=== PATIENT | female | born 1930 | race Caucasian/White ===

== ENCOUNTER 2018-04-18 15:18 | Emergency (ER) | payer MEDICAID, OTHER ==
[2018-04-18 15:31] VITALS: BMI 27.9
[2018-04-18 15:37] VITALS: TEMP 98.5
[2018-04-18] MEDS ORDERED: Sodium Chloride 0.9% 500 ML IV ONE (16:12)
[2018-04-18] MEDS ORDERED: Sodium Chloride 0.9% 1,000 ML ONE (16:37)
[2018-04-18 16:53] LABS: BASO # 0.1 K/uL (0.0-0.2); BASO % 0.7 % (0.0-2.0); EOS # 0.1 K/uL (0.0-0.7); EOS % 0.9 % (0.0-4.0); HEMOGLOBIN 13.4 g/dL (11.0-16.0); LYMPH # 0.9 K/uL (1.0-4.3); LYMPH % 10.3 % (20.0-40.0); MEAN CELL VOLUME 89.7 fL (81.0-99.0); MEAN CORPUSCULAR HEMOGLOBIN 30.4 pg (27.0-31.0); MEAN CORPUSCULAR HGB CONC 33.9 g/dL (33.0-37.0); MEAN PLATELET VOLUME 9.3 fL (7.2-11.7); MONO # 0.3 K/uL (0.0-0.8); MONO % 3.4 % (0.0-10.0); NEUT # 7.1 K/uL (1.8-7.0); NEUT % 84.7 % (50.0-75.0); NRBC % 0.1 % (0.0-2.0); RBC 4.4 Mil/uL (3.80-5.20); RED CELL DISTRIBUTION WIDTH 14.5 % (11.5-14.5); WHITE BLOOD COUNT 8.3 K/uL (4.8-10.8)
[2018-04-18 17:07] LABS: ALB/GLOB RATIO 1.4 (1.0-2.1); ALBUMIN 4.3 g/dL (3.5-5.0); CALCIUM 9.3 mg/dl (8.6-10.4); GFR AFRICAN-AMERICAN > 60; GFR NON-AFRICAN AMERICAN > 60; LIPASE 84 U/L (23-300)
[2018-04-18 17:17] LABS: ALT/SGPT 23 U/L (9-52); AST/SGOT 29 U/L (14-36); BLOOD UREA NITROGEN 13 mg/dL (7-17)
--- NOTE | 2018-04-18 17:47 | C.PDOC ---
History Of Present Illness 88 y/o female presents to ED with c/o multiple episodes of nausea and vomiting that developed earlier today after taking her usual blood pressure and DM medications. Patient denies any changes in her medications/doses. She also admits to mild dysuria. Patient denies abdominal pain, fever, chest pain, sob, sick contacts, hematuria, or any other physical complaints at this time. Time Seen by Provider: 04/18/18 15:44 Chief Complaint (Nursing): GI Problem History Per: Patient History/Exam Limitations: no limitations Onset/Duration Of Symptoms: Hrs Current Symptoms Are (Timing): Still Present Severity: Mild Quality Of Discomfort: "Pain" Associated Symptoms: Nausea, Vomiting, Urinary Symptoms Past Medical History Reviewed: Historical Data, Nursing Documentation, Vital Signs Vital Signs: Last Vital Signs Temp 98.5 F 04/18/18 15:31 Pulse 83 04/18/18 18:59 Resp 18 04/18/18 18:59 BP 145/78 04/18/18 18:59 Pulse Ox 97 04/18/18 18:59 - Medical History PMH: Arthritis, Asthma, Bronchitis, HTN, Hypercholesterolemia, Pneumonia Surgical History: No Surg Hx Family History: States: No Known Family Hx - Social History Hx Tobacco Use: No Hx Alcohol Use: No Hx Substance Use: No - Immunization History Hx Tetanus Toxoid Vaccination: No Hx Influenza Vaccination: Yes Hx Pneumococcal Vaccination: No Review Of Systems Constitutional: Negative for: Fever, Chills Cardiovascular: Negative for: Chest Pain, Palpitations Respiratory: Negative for: Shortness of Breath Gastrointestinal: Positive for: Nausea, Vomiting. Negative for: Abdominal Pain , Diarrhea Genitourinary: Positive for: Dysuria. Negative for: Hematuria, Vaginal Bleeding Skin: Negative for: Rash Neurological: Negative for: Headache, Dizziness Physical Exam - Physical Exam Appears: Well, Non-toxic, No Acute Distress Skin: Warm, Dry, No Rash Head: Normacephalic Eye(s): bilateral: Normal Inspection Oral Mucosa: Moist Neck: Supple Cardiovascular: Rhythm Regular Respiratory: Normal Breath Sounds, No Rales, No Rhonchi, No Wheezing Gastrointestinal/Abdominal: Normal Exam, Bowel Sounds, Soft, No Tenderness Neurological/Psych: Oriented x3 ED Course And Treatment - Laboratory Results Result Diagrams: 04/18/18 16:49 04/18/18 16:49 O2 Sat by Pulse Oximetry: 98 (RA) Pulse Ox Interpretation: Normal Progress Note: Blood work, UA ordered and reviewed. Patient given IV NS bolus. UA shows mild UTI - PO Ciprofloxacin given. Reevaluation Time: 18:59 Reassessment Condition: Improved (Patient reassessed, is resting comfortably and states she feels better. Patient is comfortable being discharged home at this time. Rxs for Ciprofloxacin and Zofran, and was instructed to follow up with PMD in 1-2 days. She understands she should return to ED if symptoms worsen.) Disposition Counseled Patient/Family Regarding: Studies Performed, Diagnosis, Need For Followup, Rx Given - Disposition Referrals: Shirin Bowers MD [Staff Provider] - Disposition: HOME/ ROUTINE Disposition Time: 18:50 Condition: STABLE Additional Instructions: FOLLOW UP WITH YOUR DOCTOR IN 1-2 DAYS USE MEDICATIONS NEEDED DRINK PLENTY OF FLUIDS RETURN TO EMERGENCY ROOM IF SYMPTOMS WORSEN SEGUIMIENTO CON GÓMEZ MDICO EN 1-2 PECK USE MEDICAMENTOS SEGN SEA NECESARIO BEBER MUCHO LQUIDO REGRESE AL GABRIELE DE EMERGENCIA SI LOS SNTOMAS EMPEORAN Prescriptions: Ciprofloxacin [Cipro] 1 tab PO BID #14 tab Ondansetron [Zofran Odt] 4 mg PO Q8 PRN #10 odt PRN Reason: Nausea/Vomiting Instructions: Urinary Tract Infection, Adult (DC) Forms: [facility] (Citizen Of [place]) Print Language: CROATIAN - Clinical Impression Clinical Impression: UTI (urinary tract infection), Nausea and vomiting - Scribe Statement The provider has reviewed the documentation as recorded by the Ramirez Thompson All medical record entries made by the Alessandraibkirill were at my direction and personally dictated by me. I have reviewed the chart and agree that the record accurately reflects my personal performance of the history, physical exam, medical decision making, and the department course for this patient. I have also personally directed, reviewed, and agree with the discharge instructions and disposition.
[2018-04-18 18:24] LABS: SQUAMOUS EPITHIAL 1 /hpf (0-5); URINE BACTERIA RARE (<OCC); URINE BILIRUBIN NEGATIVE (NEGATIVE); URINE BLOOD NEGATIVE (NEGATIVE); URINE CLARITY Clear (Clear); URINE COLOR Yellow (YELLOW); URINE GLUCOSE (UA) NORMAL (Normal); URINE LEUKOCYTE ESTERASE TRACE Leu/uL (Negative); URINE PROTEIN NEGATIVE (NEGATIVE); URINE UROBILINOGEN NORMAL mg/dL (0.2-1.0)
[2018-04-18 19:00] VITALS: BP 145/78; PULSE 83; RESP 18
--- NOTE | 2018-04-19 18:22 | CARD ---
APPROVED REPORT EKG Measurement Heart [id number] ID [id number] <Conclusion> Normal sinus rhythm Normal ECG
[2018-04-20 18:21] VITALS: O2SAT 98
== END 2018-04-18 19:00 | disposition home or self-care (01) ==
LOC: C.ER 15:18
DX: N39.0 Urinary tract infection, site not specified (principal); R11.2 Nausea with vomiting, unspecified
CPT/HCPCS: 80053; 81001; 82948; 83690; 85025; 87086; 93005; 96360; 99284; J7040

== ENCOUNTER 2018-08-22 09:38 | Emergency (ER) | payer MEDICAID ==
[2018-08-22 09:39] VITALS: BMI 27.9
[2018-08-22 10:05] VITALS: BP 124/77; PULSE 71; RESP 18; TEMP 98.5; O2SAT 97
[2018-08-22] MEDS ORDERED: Lidocaine 5% Patch TD ONE ×2 (10:31→10:39)
--- NOTE | 2018-08-22 10:31 | C.PDOC ---
History Of Present Illness 88 y/o female presents to ED with c/o "ball" developed to front of mid right leg since she woke up today. Patient denies trauma, pain or any other complaints at this time. Time Seen by Provider: 08/22/18 10:29 Chief Complaint (Nursing): Lower Extremity Problem/Injury History Per: Patient History/Exam Limitations: no limitations Onset/Duration Of Symptoms: Hrs Current Symptoms Are (Timing): Still Present Past Medical History Reviewed: Historical Data, Nursing Documentation, Vital Signs Vital Signs: Last Vital Signs Temp 98.5 F 08/22/18 10:02 Pulse 71 08/22/18 10:02 Resp 18 08/22/18 10:02 BP 124/77 08/22/18 10:02 Pulse Ox 97 08/22/18 10:02 - Medical History PMH: Arthritis, Asthma, Bronchitis, HTN, Hypercholesterolemia, Pneumonia Surgical History: No Surg Hx Family History: States: No Known Family Hx - Social History Hx Tobacco Use: No Hx Alcohol Use: No Hx Substance Use: No - Immunization History Hx Tetanus Toxoid Vaccination: No Hx Influenza Vaccination: No Hx Pneumococcal Vaccination: No Review Of Systems Constitutional: Negative for: Fever, Chills Musculoskeletal: Positive for: Leg Pain Skin: Negative for: Rash, Bruising Neurological: Negative for: Weakness, Numbness Physical Exam - Physical Exam Appears: Non-toxic, No Acute Distress Skin: Warm, Dry, No Rash Head: Atraumatic, Normacephalic Eye(s): bilateral: Normal Inspection Oral Mucosa: Moist Extremity: Capillary Refill (<2 seconds), No Deformity, No Swelling Extremity: Bilateral: Normal ROM Pulses: Right Dorsalis Pedis: Normal Neurological/Psych: Oriented x3, Normal Motor, Normal Sensation Gait: Steady ED Course And Treatment O2 Sat by Pulse Oximetry: 97 (RA) Pulse Ox Interpretation: Normal Disposition Counseled Patient/Family Regarding: Diagnosis, Need For Followup, Rx Given - Disposition [facility]errals: [facility] [Outside] [facility] [Outside] Disposition: HOME/ ROUTINE Disposition Time: 10:30 Condition: GOOD Prescriptions: Acetaminophen [Tylenol 325mg tab] 650 mg PO Q6 #30 tab Lidocaine 5% [Lidoderm] 1 ea TD PRN PRN #10 patch PRN Reason: Pain, Moderate (4-7) Instructions: Muscle and Bone Pain (DC) Forms: [employer] (Vietnamese) Print Language: ALBANIAN - Clinical Impression Clinical Impression: Pain in mcgrath - Scribe Statement The provider has reviewed the documentation as recorded by the Alessandraibkirill Thompson All medical record entries made by the Alessandraibkirill were at my direction and personally dictated by me. I have reviewed the chart and agree that the record accurately reflects my personal performance of the history, physical exam, medical decision making, and the department course for this patient. I have also personally directed, reviewed, and agree with the discharge instructions and disposition. Addendum Addendum: 08/22/18 12:33 per pharmacy lidoderm not covered, rx changed to lidocaine ointment 5%
== END 2018-08-22 10:41 | disposition home or self-care (01) ==
LOC: C.ER 09:38
DX: M79.661 Pain in right lower leg (principal)